=== PATIENT | female | born 1935 | race Caucasian/White ===

== ENCOUNTER → 2018-03-07 | Outpatient (REF) ==
[2018-03-07 09:34] LABS: ALBUMIN 3.4 gm/dL (3.5-5.0); BILIRUBIN,TOTAL 0.3 mg/dL (0.0-1.0); CALCIUM 8.8 mg/dL (8.4-10.2); CREATININE, serum 0.65 mg/dL (0.52-1.25); POTASSIUM 4.8 mmol/L (3.4-5.0); TOTAL PROTEIN 6.4 gm/dL (6.4-8.2)
== END ==
LOC: ZLAB.STJ 09:19
DX: Z01.89 Encounter for other specified special examinations (principal)

== ENCOUNTER → 2018-05-12 | Outpatient (CLI) | payer BC ==
[2018-05-12 15:48] LABS: CALCIUM 8.6 mg/dL (8.4-10.2); CREATININE, serum 0.7 mg/dL (0.52-1.25); POTASSIUM 4.3 mmol/L (3.4-5.0)
[2018-05-12 16:19] LABS: THYROID STIMULATING HORMONE 1.21 uIU/mL (0.465-4.680)
== END ==
LOC: ZCOL.LAB 15:07 → ZLAB.STJ 15:07
PROVIDERS: Nurse Practitioner
DX: R73.09 Other abnormal glucose (principal); R94.6 Abnormal results of thyroid function studies; R79.89 Other specified abnormal findings of blood chemistry

== ENCOUNTER → 2018-05-31 | Outpatient (CLI) | payer BC | LOC: ZLAB.STJ 10:31 | DX: R94.6 Abnormal results of thyroid function studies (principal) ==

== ENCOUNTER → 2018-07-10 | Outpatient (CLI) | payer MEDICARE, BC ==
[2018-07-10 15:20] LABS: COLLECTION METHOD CLEAN CATCH
[2018-07-10 15:46] LABS: PH 8 (5-8); SQUAMOUS EPITHELIAL None Seen /hpf; URINE APPEARANCE Clear; URINE BACTERIA Rare /hpf; URINE BILIRUBIN Negative (NEGATIVE); URINE BLOOD 3+ (NEGATIVE); URINE COLOR Red; URINE GLUCOSE Negative (NEGATIVE); URINE KETONE Negative (NEGATIVE); URINE LEUKOCYTE ESTERASE Negative (NEGATIVE); URINE NITRATE Negative (NEGATIVE); URINE PROTEIN(semi-quant) 2+ (NEGATIVE); URINE RBC >50 /hpf; URINE UROBILINOGEN Negative (NEGATIVE)
== END ==
LOC: ZLAB.STJ 14:26
PROVIDERS: Internal Medicine
DX: R31.9 Hematuria, unspecified (principal)

== ENCOUNTER → 2018-07-24 | Outpatient (CLI) | payer MEDICARE, BC | LOC: ZLAB.STJ 10:09 | DX: R73.09 Other abnormal glucose (principal); R94.6 Abnormal results of thyroid function studies ==

== ENCOUNTER 2018-08-24 11:37 | Emergency (ER) | payer MEDICARE, BC ==
[~2018-08-24] VITALS: Ht 154.9 cm; Wt 73.6 kg
[2018-08-24 11:50] VITALS: TEMP 98.6
[2018-08-24 13:14] LABS: BASO % 0.3 % (0.0-2.0); EOS # 0.1 (0.0-0.7); EOS % 1.4 % (0-4.0); GRAN # 4.9 (1.4-6.5); GRAN % 69.2 % (42.2-75.2); HEMATOCRIT 37.5 % (37.0-47.0); HEMOGLOBIN 11.8 g/dl (12.5-16.0); LYMPH # 1.2 (1.2-3.4); LYMPH % 17.1 % (20.0-51.0); MEAN CELL VOLUME 90 fl (80.0-100.0); MEAN CORPUSCULAR HEMOGLOBIN 28 pg (27.0-31.0); MEAN CORPUSCULAR HGB CONC 32 g/dl (33.0-37.0); MEAN PLATELET VOLUME 13.6 fl (7.4-10.4); MONO # 0.9 (0.1-0.6); MONO % 11.9 % (1.7-9.3); PLATELET COUNT 163 K/mm3 (130-400); RED BLOOD COUNT 4.19 M/mm3 (4.10-5.30)
[2018-08-24 13:31] LABS: COLLECTION METHOD CLEAN CATCH
[2018-08-24 13:32] LABS: ALBUMIN 4.1 gm/dL (3.5-5.0); BILIRUBIN,TOTAL 0.5 mg/dL (0.0-1.0); CALCIUM 9.2 mg/dL (8.4-10.2); CREATININE, serum 0.76 mg/dL (0.52-1.25); POTASSIUM 4.1 mmol/L (3.4-5.0); TOTAL PROTEIN 7.1 gm/dL (6.4-8.2)
[2018-08-24 13:37] LABS: PH 6 (5-8); SQUAMOUS EPITHELIAL 0-2 /hpf; URINE APPEARANCE Clear; URINE BACTERIA None Seen /hpf; URINE BILIRUBIN Negative (NEGATIVE); URINE BLOOD Negative (NEGATIVE); URINE COLOR Yellow; URINE GLUCOSE Negative (NEGATIVE); URINE KETONE Trace (NEGATIVE); URINE LEUKOCYTE ESTERASE Negative (NEGATIVE); URINE NITRATE Negative (NEGATIVE); URINE PROTEIN(semi-quant) Negative (NEGATIVE); URINE RBC 0-2 /hpf; URINE UROBILINOGEN Negative (NEGATIVE); URINE WBC 0-2 /hpf
[2018-08-24 14:02] LABS: TSH w REFLEX 1.58 uIU/mL (0.465-4.680)
[2018-08-24 14:45] VITALS: BP 111/64; PULSE 72
== END 2018-08-24 14:45 | disposition home or self-care (01) ==
LOC: COL.ER 11:37
PROVIDERS: Emergency Medicine
DX: M25.512 Pain in left shoulder (principal); H92.02 Otalgia, left ear; R53.81 Other malaise; F41.9 Anxiety disorder, unspecified; J44.9 Chronic obstructive pulmonary disease, unspecified; F90.9 Attention-deficit hyperactivity disorder, unspecified type

== ENCOUNTER 2018-08-29 09:34 | Emergency (ER) | payer MEDICARE ==
[~2018-08-29] VITALS: Ht 154.9 cm; Wt 73.6 kg
[2018-08-29 09:39] VITALS: TEMP 98
[2018-08-29] MEDS ORDERED: GLUCOPHAGE500 MG/TAB PO (10:00)
[2018-08-29] MEDS ORDERED: NAMENDA5 MG PO (10:05)
[2018-08-29] MEDS ORDERED: MILK OF MA400 MG/52 PO (10:06)
[2018-08-29] MEDS ORDERED: KLONOPIN 0.5MG0.5 MG PO (10:07)
[2018-08-29] MEDS ORDERED: PHILLIPS'311 MG PO (10:07)
[2018-08-29] MEDS ORDERED: NORCO 325 MG-51 TAB PO (10:08)
[2018-08-29] MEDS ORDERED: TYLENOL 325MG325 MG PO (10:09)
[2018-08-29] MEDS ORDERED: XARELTO20 MG PO (10:11)
[2018-08-29] MEDS ORDERED: DESYREL 100MG100 MG PO (10:11)
[2018-08-29] MEDS ORDERED: IPRATROPIUM BROM3 M1 IH (10:16)
[2018-08-29] MEDS ORDERED: BROVANA15 MCG/2 M IH (10:26)
[2018-08-29] MEDS ORDERED: CARDIZEM 30MG T30 MG PO (10:27)
[2018-08-29] MEDS ORDERED: PULMICORT0.5 MG/2 M IH (10:28)
[2018-08-29] MEDS ORDERED: SYNTHROID0.05 MG/TA PO (10:28)
[2018-08-29] MEDS ORDERED: XANAX .25M0.25 MG/TA PO (10:29)
[2018-08-29] MEDS ORDERED: LYRICA 50MG CAP50 MG PO (10:29)
[2018-08-29] MEDS ORDERED: ZOLOFT 100MG100 MG PO (10:30)
[2018-08-29] MEDS ORDERED: ABILIFY5 MG PO (10:30)
[2018-08-29] MEDS ORDERED: IBU600 MG PO (10:31)
[2018-08-29] MEDS ORDERED: MIRALAX PA17 GM/Dose PO (10:31)
[2018-08-29] MEDS ORDERED: ARICEPT10 MG PO (10:32)
[2018-08-29] MEDS ORDERED: PEPCID 20MG TAB20 MG PO (10:33)
[2018-08-29] MEDS ORDERED: MUCINEX 60600 MG/TA1 PO (10:34)
[2018-08-29] MEDS ORDERED: SALINE 45 ML45 ML NS (10:35)
[2018-08-29 11:48] VITALS: BP 120/63; PULSE 96
== END 2018-08-29 12:18 | disposition home or self-care (01) ==
LOC: COL.ER 09:34
DX: R04.0 Epistaxis (principal); I48.91 Unspecified atrial fibrillation; Z79.82 Long term (current) use of aspirin

== ENCOUNTER 2018-10-07 21:07 | Emergency (ER) | payer MEDICARE ==
[~2018-10-07] VITALS: Ht 154.9 cm; Wt 75.9 kg
[2018-10-07 21:07] VITALS: TEMP 97.6
[~2018-10-07 21:07] MED LIST: ABILIFY5 MG PO; ARICEPT10 MG PO; BROVANA15 MCG/2 M IH; CARDIZEM 30MG T30 MG PO; DESYREL 100MG100 MG PO; GLUCOPHAGE500 MG/TAB PO; IBU600 MG PO; IPRATROPIUM BROM3 M1 IH; KLONOPIN 0.5MG0.5 MG PO; LYRICA 50MG CAP50 MG PO; MILK OF MA400 MG/52 PO; MIRALAX PA17 GM/Dose PO; MUCINEX 60600 MG/TA1 PO; NAMENDA5 MG PO; NORCO 325 MG-51 TAB PO; PEPCID 20MG TAB20 MG PO; PHILLIPS'311 MG PO; PULMICORT0.5 MG/2 M IH; SALINE 45 ML45 ML NS; SYNTHROID0.05 MG/TA PO; TYLENOL 325MG325 MG PO; XANAX .25M0.25 MG/TA PO; XARELTO20 MG PO; ZOLOFT 100MG100 MG PO
[2018-10-07] MEDS ORDERED: PROBIOTIC FORMU1 CAP PO (21:16)
[2018-10-07] MEDS ORDERED: TYLENOL 325MG325 MG PO (21:24)
[2018-10-07] MEDS ORDERED: XARELTO20 MG PO (21:25)
[2018-10-07] MEDS ORDERED: IPRATROPIUM BROM3 M1 IH (21:26)
[2018-10-07] MEDS ORDERED: PULMICORT0.5 MG/2 M IH (21:27)
[2018-10-07] MEDS ORDERED: SYNTHROID0.05 MG/TA PO (21:28)
[2018-10-07] MEDS ORDERED: MUCINEX 60600 MG/TA1 (21:32)
[2018-10-07 21:47] LABS: BASO % 0.4 % (0.0-2.0); EOS # 0.4 (0.0-0.7); EOS % 5.1 % (0-4.0); GRAN # 4.9 (1.4-6.5); GRAN % 61.5 % (42.2-75.2); HEMOGLOBIN 10.5 g/dl (12.5-16.0); LYMPH # 1.7 (1.2-3.4); LYMPH % 20.9 % (20.0-51.0); MEAN CELL VOLUME 89 fl (80.0-100.0); MEAN CORPUSCULAR HEMOGLOBIN 27 pg (27.0-31.0); MEAN CORPUSCULAR HGB CONC 30 g/dl (33.0-37.0); MONO % 11.9 % (1.7-9.3); PLATELET COUNT 158 K/mm3 (130-400); RED BLOOD COUNT 3.89 M/mm3 (4.10-5.30)
[2018-10-07 21:48] LABS: HEMATOCRIT 34.5 % (37.0-47.0)
[2018-10-07 21:56] LABS: INR 1.4 (0.8-3.0); PROTHROMBIN TIME 16.3 SECONDS (9.7-12.8)
[2018-10-07 21:59] LABS: PARTIAL THROMBOPLASTIN TIME 60.1 SECONDS (26.0-37.0)
[2018-10-07 22:09] LABS: ALANINE AMINOTRANSFERASE 23 U/L (9-52); ALBUMIN 3.9 gm/dL (3.5-5.0); ALKALINE PHOSPHATASE 71 U/L (50-136); ANION GAP 7 mmol/L (7-16); AST,SGOT 25 U/L (15-37); BILIRUBIN,TOTAL 0.2 mg/dL (0.0-1.0); BLOOD UREA NITROGEN 14 mg/dL (7-17); CALCIUM 8.7 mg/dL (8.4-10.2); CARBON DIOXIDE 31 mmol/L (22-30); CHLORIDE 103 mmol/L (98-107); CREATININE, serum 0.86 mg/dL (0.52-1.25); GLUCOSE 90 mg/dL (74-106); SODIUM 141 mmol/L (137-145); TOTAL PROTEIN 6.9 gm/dL (6.4-8.2)
[2018-10-07 22:27] LABS: TROPONIN-I < 0.012 ng/mL (0.000-0.035)
[2018-10-07 22:40] VITALS: BP 119/56; PULSE 79
== END 2018-10-07 22:43 | disposition home or self-care (01) ==
LOC: COL.ER 21:07
PROVIDERS: Family Medicine
DX: R07.89 Other chest pain (principal); J44.9 Chronic obstructive pulmonary disease, unspecified

== ENCOUNTER → 2018-12-15 | Outpatient (CLI) | payer MEDICARE ==
[~2018-12-15] MED LIST changes: +MUCINEX 60600 MG/TA1; +PROBIOTIC FORMU1 CAP PO
== END ==
LOC: BHSO 09:38
DX: F31.81 Bipolar II disorder (principal)

== ENCOUNTER → 2019-01-08 | Outpatient (CLI) | payer MEDICARE ==
[2019-01-08 14:13] LABS: ALBUMIN 3.9 gm/dL (3.5-5.0); BILIRUBIN,TOTAL 0.4 mg/dL (0.0-1.0); CALCIUM 9.1 mg/dL (8.4-10.2); CHOLESTEROL RISK RATIO 3.9; CREATININE, serum 0.78 (0.52-1.25); POTASSIUM 4.9 mmol/L (3.4-5.0); TOTAL PROTEIN 6.8 gm/dL (6.4-8.2)
[2019-01-08 14:41] LABS: THYROID STIMULATING HORMONE 1.08 uIU/mL (0.465-4.680)
== END ==
LOC: ZLAB.STJ 11:50
PROVIDERS: Internal Medicine
DX: E11.40 Type 2 diabetes mellitus with diabetic neuropathy, unspecified (principal)

== ENCOUNTER → 2019-01-09 | Outpatient (CLI) | payer MEDICARE ==
--- NOTE | 2019-01-09 07:29 | NUR ---
Patient referred to us for Exercise oximetry by Dr. Lao. Pt @ rest on RA arrival SPO2 93%, HR 87, RR 20. Patient was able to walk aprox. 100 ft with walker. Pt's SPO2 at that time increased to 95%, HR 98, RR 24. Patient was unable to walk further explained she has neuropothy and cannot be more active than that walk.
== END ==
LOC: COL.PUL 07:00
DX: R06.02 Shortness of breath (principal)

== ENCOUNTER → 2019-01-12 | Outpatient (CLI) | payer MEDICARE | LOC: BHSO 14:01 | DX: F31.81 Bipolar II disorder (principal) | CPT/HCPCS: G0463 ==

== ENCOUNTER 2019-01-21 11:20 | Emergency (ER) | payer MEDICARE ==
[~2019-01-21] VITALS: Ht 154.9 cm; Wt 73.6 kg
[~2019-01-21 11:20] MED LIST changes: +ABILIFY 10MG TA10 MG PO; -ABILIFY5 MG PO
[2019-01-21 11:28] VITALS: BP 125/65; TEMP 98.7
[2019-01-21 12:22] LABS: BASO % 0.4 % (0.0-2.0); EOS # 0.1 (0.0-0.7); EOS % 1.6 % (0-4.0); GRAN # 5.9 (1.4-6.5); GRAN % 74.3 % (42.2-75.2); HEMATOCRIT 39.4 % (37.0-47.0); HEMOGLOBIN 11.7 g/dl (12.5-16.0); LYMPH % 12.6 % (20.0-51.0); MEAN CELL VOLUME 89 fl (80.0-100.0); MEAN CORPUSCULAR HEMOGLOBIN 26 pg (27.0-31.0); MEAN CORPUSCULAR HGB CONC 30 g/dl (33.0-37.0); MONO # 0.8 (0.1-0.6); MONO % 10.6 % (1.7-9.3); PLATELET COUNT 143 K/mm3 (130-400); RED BLOOD COUNT 4.43 M/mm3 (4.10-5.30); REDCELL DISTRIBUTION WIDTH-CV 17.4 % (11.5-14.5)
[2019-01-21 12:30] LABS: ALANINE AMINOTRANSFERASE 11 U/L (9-52); ALKALINE PHOSPHATASE 73 U/L (50-136); ANION GAP 9 mmol/L (7-16); AST,SGOT 30 U/L (15-37); BILIRUBIN,TOTAL 0.4 mg/dL (0.0-1.0); BLOOD UREA NITROGEN 18 mg/dL (7-17); CALCIUM 9.1 mg/dL (8.4-10.2); CARBON DIOXIDE 30 mmol/L (22-30); CHLORIDE 104 mmol/L (98-107); CREATININE, serum 0.83 (0.52-1.25); GLUCOSE 91 mg/dL (74-106); POTASSIUM 4.5 mmol/L (3.4-5.0); SODIUM 143 mmol/L (137-145); TOTAL PROTEIN 7.4 gm/dL (6.4-8.2)
[2019-01-21 12:35] LABS: ARTERIAL BLD GAS O2 SATURATION 91.4 % (92-100); ARTERIAL BLD GAS TCO2 CT 27.8; ARTERIAL BLOOD GAS BASE EXCESS 0.7 (-2-2); ARTERIAL BLOOD GAS HCO3 26.3 meq/L (22-26); ARTERIAL BLOOD GAS PCO2 46.4 mmHg (35-45); ARTERIAL BLOOD GAS PO2 64.5 mmHg (80-100); ARTERIAL BLOOD GAS pH 7.37 (7.35-7.45)
[2019-01-21 12:42] LABS: TROPONIN-I < 0.012 ng/mL (0.000-0.035)
[2019-01-21] MEDS ORDERED: PREDNISONE20 MG PO (14:07)
[2019-01-21] MEDS ORDERED: OMNICEF 300MG300 MG PO (14:07)
[2019-01-21 14:20] VITALS: PULSE 83
[2019-01-21 14:24] LABS: COLLECTION METHOD CLEAN CATCH
[2019-01-21 14:37] LABS: MUCOUS Present /lpf; PH 6 (5-8); SQUAMOUS EPITHELIAL 0-2 /hpf; URINE APPEARANCE Clear; URINE BACTERIA None Seen /hpf; URINE BILIRUBIN Negative (NEGATIVE); URINE BLOOD Negative (NEGATIVE); URINE COLOR Yellow; URINE GLUCOSE Negative (NEGATIVE); URINE KETONE Negative (NEGATIVE); URINE LEUKOCYTE ESTERASE Negative (NEGATIVE); URINE NITRATE Negative (NEGATIVE); URINE PROTEIN(semi-quant) Negative (NEGATIVE); URINE RBC 0-2 /hpf; URINE UROBILINOGEN Negative (NEGATIVE)
[2019-01-21] MEDS ORDERED: ALBUTEROL0.83 MG/ML IH (14:53)
[2019-01-21] MEDS ORDERED: PERFOROMIS20 MCG/2 M IH (14:53)
[2019-01-21] MEDS ORDERED: PROAIR HFA0.09 MG/AC IH (14:54)
== END 2019-01-21 14:30 | disposition home or self-care (01) ==
LOC: COL.ER 11:20
PROVIDERS: Family Medicine
DX: J44.1 Chronic obstructive pulmonary disease with (acute) exacerbation (principal); J20.9 Acute bronchitis, unspecified; M79.7 Fibromyalgia; I10 Essential (primary) hypertension; E11.9 Type 2 diabetes mellitus without complications; I48.91 Unspecified atrial fibrillation; Z79.84 Long term (current) use of oral hypoglycemic drugs; Z79.01 Long term (current) use of anticoagulants
CPT/HCPCS: A4216; J0696; J2930; J7030

== ENCOUNTER → 2019-01-24 | Outpatient (CLI) | payer MEDICARE ==
[~2019-01-24] MED LIST changes: +ALBUTEROL0.83 MG/ML IH; +OMNICEF 300MG300 MG PO; +PERFOROMIS20 MCG/2 M IH; +PREDNISONE20 MG PO; +PROAIR HFA0.09 MG/AC IH
== END ==
LOC: ZLAB.STJ 10:40
DX: E11.40 Type 2 diabetes mellitus with diabetic neuropathy, unspecified (principal); E03.9 Hypothyroidism, unspecified

== ENCOUNTER → 2019-01-26 | Outpatient (CLI) | payer MEDICARE | LOC: COL.PUL 11:03 | DX: J44.9 Chronic obstructive pulmonary disease, unspecified (principal); I08.1 Rheumatic disorders of both mitral and tricuspid valves ==

== ENCOUNTER 2019-02-18 17:04 | Emergency (ER) | payer MEDICARE ==
[~2019-02-18] VITALS: Ht 154.9 cm; Wt 72.7 kg
[2019-02-18 17:27] VITALS: TEMP 97.1
[2019-02-18 18:34] LABS: ALANINE AMINOTRANSFERASE 21 U/L (9-52); ALBUMIN 3.6 gm/dL (3.5-5.0); ALKALINE PHOSPHATASE 66 U/L (50-136); ANION GAP 7 mmol/L (7-16); AST,SGOT 31 U/L (15-37); BILIRUBIN,TOTAL 0.3 mg/dL (0.0-1.0); BLOOD UREA NITROGEN 13 mg/dL (7-17); C-REACTIVE PROTEIN 2.5 mg/dL (0.0-0.9); CALCIUM 8.5 mg/dL (8.4-10.2); CARBON DIOXIDE 30 mmol/L (22-30); CHLORIDE 104 mmol/L (98-107); GLUCOSE 84 mg/dL (74-106); LIPASE 168 U/L (23-300); POTASSIUM 4.3 mmol/L (3.4-5.0); SODIUM 141 mmol/L (137-145); TOTAL PROTEIN 6.7 gm/dL (6.4-8.2)
[2019-02-18 18:39] LABS: BASO % 0.3 % (0.0-2.0); EOS # 0.1 (0.0-0.7); EOS % 1.9 % (0-4.0); GRAN # 5.2 (1.4-6.5); GRAN % 73.9 % (42.2-75.2); HEMATOCRIT 37.7 % (37.0-47.0); HEMOGLOBIN 11.2 g/dl (12.5-16.0); LYMPH # 0.9 (1.2-3.4); LYMPH % 13.2 % (20.0-51.0); MEAN CELL VOLUME 91 fl (80.0-100.0); MEAN CORPUSCULAR HEMOGLOBIN 27 pg (27.0-31.0); MEAN CORPUSCULAR HGB CONC 30 g/dl (33.0-37.0); MEAN PLATELET VOLUME 13.8 fl (7.4-10.4); MONO # 0.7 (0.1-0.6); MONO % 10.3 % (1.7-9.3); PLATELET COUNT 141 K/mm3 (130-400); RED BLOOD COUNT 4.15 M/mm3 (4.10-5.30); REDCELL DISTRIBUTION WIDTH-CV 16.4 % (11.5-14.5)
[2019-02-18 18:47] LABS: TROPONIN-I < 0.012 ng/mL (0.000-0.035)
[2019-02-18] MEDS ORDERED: K-DUR20 MEQ PO (19:39)
[2019-02-18] MEDS ORDERED: LASIX 20MG TABL20 MG PO (19:39)
[2019-02-18] MEDS ORDERED: PREDNISONE20 MG PO (19:39)
[2019-02-18 19:51] VITALS: BP 136/81; PULSE 92
[2019-02-18] MEDS ORDERED: MILK OF MA400 MG/52 (20:15)
[2019-02-18] MEDS ORDERED: NAMENDA5 MG PO (20:15)
[2019-02-18] MEDS ORDERED: GLUCOPHAGE500 MG/TAB PO (20:15)
[2019-02-18] MEDS ORDERED: KLONOPIN WAFER0.5 MG PO (20:16)
[2019-02-18] MEDS ORDERED: PROBIOTICA100 Milli1 PO (20:16)
[2019-02-18] MEDS ORDERED: CARDIZEM 30MG T30 MG PO (20:17)
[2019-02-18] MEDS ORDERED: XARELTO20 MG PO (20:17)
[2019-02-18] MEDS ORDERED: ATROVENT I0.2 MG/1 M IH (20:17)
[2019-02-18] MEDS ORDERED: PULMICORT0.5 MG/2 M IH (20:18)
[2019-02-18] MEDS ORDERED: ZOLOFT 100MG100 MG PO (20:18)
[2019-02-18] MEDS ORDERED: LYRICA 50MG CAP50 MG PO (20:18)
[2019-02-18] MEDS ORDERED: MIRALAX PA17 GM/Dose PO (20:19)
[2019-02-18] MEDS ORDERED: ARICEPT10 MG PO (20:20)
[2019-02-18] MEDS ORDERED: MUCINEX 60600 MG/TA1 PO (20:20)
[2019-02-18] MEDS ORDERED: PERFOROMIS20 MCG/2 M IH (20:21)
[2019-02-18] MEDS ORDERED: PEPCID 20MG TAB20 MG PO (20:21)
[2019-02-18] MEDS ORDERED: NIRAVAM0.25 MG PO (20:22)
[2019-02-18] MEDS ORDERED: ABILIFY 10MG TA10 MG PO (20:22)
[2019-02-18] MEDS ORDERED: DESYREL 100MG100 MG PO (20:22)
[2019-02-18] MEDS ORDERED: SYNTHROID 0.0.025 MG PO (20:23)
== END 2019-02-18 19:51 | disposition home or self-care (01) ==
LOC: COL.ER 17:04
PROVIDERS: Emergency Medicine
DX: J44.1 Chronic obstructive pulmonary disease with (acute) exacerbation (principal); I50.1 Left ventricular failure, unspecified; F03.90 Unspecified dementia, unspecified severity, without behavioral disturbance, psychotic disturbance, mood disturbance, and anxiety; Z79.84 Long term (current) use of oral hypoglycemic drugs
CPT/HCPCS: J7512

== ENCOUNTER → 2019-02-28 | Outpatient (REF) ==
[~2019-02-28] MED LIST changes: +ATROVENT I0.2 MG/1 M IH; +K-DUR20 MEQ PO; +KLONOPIN WAFER0.5 MG PO; +LASIX 20MG TABL20 MG PO; +MILK OF MA400 MG/52; +NIRAVAM0.25 MG PO; +PROBIOTICA100 Milli1 PO; +SYNTHROID 0.0.025 MG PO
[2019-02-28 10:48] LABS: CALCIUM 8.7 mg/dL (8.4-10.2); CREATININE, serum 0.95 (0.52-1.25); POTASSIUM 5.2 mmol/L (3.4-5.0)
== END ==
LOC: ZLAB.STJ 10:33
PROVIDERS: Nurse Practitioner
DX: Z01.89 Encounter for other specified special examinations (principal)

== ENCOUNTER → 2019-03-09 | Outpatient (CLI) | payer MEDICARE | LOC: ZLAB.STJ 17:00 | DX: R94.6 Abnormal results of thyroid function studies (principal) ==

== ENCOUNTER → 2019-03-14 | Outpatient (CLI) | payer MEDICARE | LOC: ZLAB.STJ 11:57 | DX: E87.5 Hyperkalemia (principal) ==

== ENCOUNTER → 2019-04-18 | Outpatient (CLI) | payer MEDICARE | LOC: BHSO 13:45 | DX: F31.81 Bipolar II disorder (principal) | CPT/HCPCS: G0463 ==

== ENCOUNTER → 2019-04-19 | Outpatient (CLI) | payer MEDICARE ==
[2019-04-19 11:53] LABS: BILIRUBIN,TOTAL 0.6 mg/dL (0.0-1.0); CALCIUM 8.9 mg/dL (8.4-10.2); CHOLESTEROL RISK RATIO 4.4; CREATININE, serum 0.83 (0.52-1.25); POTASSIUM 4.8 mmol/L (3.4-5.0); TOTAL PROTEIN 6.8 gm/dL (6.4-8.2)
[2019-04-19 12:23] LABS: THYROID STIMULATING HORMONE 2.02 uIU/mL (0.465-4.680)
== END ==
LOC: ZLAB.STJ 10:45
PROVIDERS: Psychiatry & Neurology Psychiatry
DX: I48.0 Paroxysmal atrial fibrillation (principal); R94.6 Abnormal results of thyroid function studies

== ENCOUNTER → 2019-05-21 | Outpatient (CLI) | payer MEDICARE | LOC: COL.RAD 13:17 | DX: J44.9 Chronic obstructive pulmonary disease, unspecified (principal) ==

== ENCOUNTER → 2019-05-31 | Outpatient (CLI) | payer MEDICARE, MEDICAID | LOC: ZLAB.STJ 11:33 | DX: E11.40 Type 2 diabetes mellitus with diabetic neuropathy, unspecified (principal); E03.9 Hypothyroidism, unspecified ==

== ENCOUNTER → 2019-06-14 | Outpatient (CLI) | payer MEDICARE, MEDICAID | LOC: BHSO 14:01 | DX: F31.81 Bipolar II disorder (principal) | CPT/HCPCS: G0463 ==

== ENCOUNTER → 2019-09-21 | Outpatient (CLI) | payer MEDICARE, MEDICAID | LOC: BHSO 13:55 | DX: F31.81 Bipolar II disorder (principal) | CPT/HCPCS: G0463 ==

== ENCOUNTER → 2019-10-09 | Outpatient (CLI) | payer MEDICARE, MEDICAID ==
[2019-10-09 10:39] LABS: CALCIUM 8.7 mg/dL (8.4-10.2); CREATININE, serum 0.9 (0.52-1.25); POTASSIUM 4.5 mmol/L (3.4-5.0)
== END ==
LOC: ZLAB.STJ 10:27
PROVIDERS: Internal Medicine
DX: E11.40 Type 2 diabetes mellitus with diabetic neuropathy, unspecified (principal); I10 Essential (primary) hypertension

== ENCOUNTER → 2019-10-12 | Outpatient (CLI) | payer MEDICARE, MEDICAID ==
[2019-10-12 10:33] LABS: HEMATOCRIT 41.7 % (37.0-47.0); HEMOGLOBIN 12.5 g/dl (12.5-16.0); MEAN CELL VOLUME 98 fl (80.0-100.0); MEAN CORPUSCULAR HEMOGLOBIN 29 pg (27.0-31.0); MEAN CORPUSCULAR HGB CONC 30 g/dl (33.0-37.0); PLATELET COUNT 136 K/mm3 (130-400); RED BLOOD COUNT 4.27 M/mm3 (4.10-5.30); REDCELL DISTRIBUTION WIDTH-CV 13.8 % (11.5-14.5)
== END ==
LOC: ZLAB.STJ 09:37
PROVIDERS: Internal Medicine
DX: I48.0 Paroxysmal atrial fibrillation (principal)

== ENCOUNTER → 2020-03-13 | Outpatient (CLI) | payer MEDICARE, MEDICAID | LOC: BHSO 14:00 | DX: F31.81 Bipolar II disorder (principal) ==

== ENCOUNTER → 2020-03-26 | Outpatient (CLI) | payer MEDICARE, MEDICAID ==
[2020-03-26 11:12] LABS: ALBUMIN 3.7 gm/dL (3.5-5.0); BILIRUBIN,TOTAL 0.5 mg/dL (0.0-1.0); CALCIUM 8.6 mg/dL (8.4-10.2); CREATININE, serum 0.92 (0.52-1.25); TOTAL PROTEIN 6.7 gm/dL (6.4-8.2)
[2020-03-26 11:42] LABS: THYROID STIMULATING HORMONE 2.63 uIU/mL (0.465-4.680)
== END ==
LOC: ZCOL.LAB 10:42
PROVIDERS: Family Medicine
DX: E03.9 Hypothyroidism, unspecified (principal)

== ENCOUNTER → 2020-09-20 | Outpatient (CLI) | payer MEDICARE, MEDICAID ==
[2020-09-20 08:13] LABS: COLLECTION METHOD CLEAN CATCH
[2020-09-20 08:23] LABS: MUCOUS Present /lpf; PH 6 (5-8); SQUAMOUS EPITHELIAL 0-2 /hpf; URINE APPEARANCE Clear; URINE BACTERIA None Seen /hpf; URINE BILIRUBIN Negative (NEGATIVE); URINE BLOOD Negative (NEGATIVE); URINE COLOR Yellow; URINE GLUCOSE Negative (NEGATIVE); URINE KETONE Negative (NEGATIVE); URINE LEUKOCYTE ESTERASE Negative (NEGATIVE); URINE NITRATE Negative (NEGATIVE); URINE PROTEIN(semi-quant) Negative (NEGATIVE); URINE UROBILINOGEN Negative (NEGATIVE)
== END ==
LOC: ZLAB.STJ 08:09
PROVIDERS: Family Medicine
DX: N39.0 Urinary tract infection, site not specified (principal)

== ENCOUNTER → 2020-10-09 | Outpatient (CLI) | payer MEDICARE, MEDICAID ==
[2020-10-09 12:25] LABS: HEMATOCRIT 41.4 % (37.0-47.0); HEMOGLOBIN 12.5 g/dl (12.5-16.0); MEAN CELL VOLUME 97 fl (80.0-100.0); MEAN CORPUSCULAR HEMOGLOBIN 29 pg (27.0-31.0); MEAN CORPUSCULAR HGB CONC 30 g/dl (33.0-37.0); PLATELET COUNT 120 K/mm3 (130-400); RED BLOOD COUNT 4.28 M/mm3 (4.10-5.30); REDCELL DISTRIBUTION WIDTH-CV 13.5 % (11.5-14.5)
[2020-10-09 12:32] LABS: CHOLESTEROL RISK RATIO 4.7
[2020-10-09 13:01] LABS: TSH w REFLEX 3.22 uIU/mL (0.465-4.680)
== END ==
LOC: ZLAB.STJ 09:45
PROVIDERS: Family Medicine
DX: E11.40 Type 2 diabetes mellitus with diabetic neuropathy, unspecified (principal)

== ENCOUNTER → 2020-10-22 | Outpatient (CLI) | payer MEDICARE, MEDICAID ==
[2020-10-23 10:03] LABS: COLLECTION METHOD CLEAN CATCH
[2020-10-23 10:05] LABS: PH 6 (5-8); URINE APPEARANCE Clear; URINE BILIRUBIN Negative (NEGATIVE); URINE COLOR Yellow; URINE GLUCOSE Negative (NEGATIVE); URINE KETONE Negative (NEGATIVE); URINE PROTEIN(semi-quant) Negative (NEGATIVE); URINE UROBILINOGEN Negative (NEGATIVE)
[2020-10-23 10:06] LABS: SQUAMOUS EPITHELIAL 0-2 /hpf; URINE BLOOD 1+ (NEGATIVE); URINE LEUKOCYTE ESTERASE Trace (NEGATIVE); URINE NITRATE Negative (NEGATIVE)
[2020-10-23 10:07] LABS: URINE BACTERIA None Seen /hpf
== END ==
LOC: ZLAB.STJ 08:35
PROVIDERS: Family Medicine
DX: R31.9 Hematuria, unspecified (principal)

== ENCOUNTER 2021-01-04 12:08 | Emergency (ER) | payer MEDICARE, MEDICAID ==
[~2021-01-04] VITALS: Ht 154.9 cm; Wt 80.0 kg
[2021-01-04 12:13] VITALS: TEMP 98.3
[2021-01-04 14:26] VITALS: BP 124/64; PULSE 62
== END 2021-01-04 14:30 ==
LOC: COL.ER 12:08
DX: S09.90XA Unspecified injury of head, initial encounter (principal); S01.01XA Laceration without foreign body of scalp, initial encounter; M65.88 Other synovitis and tenosynovitis, other site; F31.9 Bipolar disorder, unspecified; J44.9 Chronic obstructive pulmonary disease, unspecified; I48.91 Unspecified atrial fibrillation; E11.40 Type 2 diabetes mellitus with diabetic neuropathy, unspecified; Z79.84 Long term (current) use of oral hypoglycemic drugs; Z79.01 Long term (current) use of anticoagulants; Z79.51 Long term (current) use of inhaled steroids; W01.198A Fall on same level from slipping, tripping and stumbling with subsequent striking against other object, initial encounter

== ENCOUNTER → 2021-04-03 | Outpatient (CLI) | payer MEDICARE, MEDICAID | LOC: ZLAB.STJ 14:41 | DX: E11.40 Type 2 diabetes mellitus with diabetic neuropathy, unspecified (principal) ==

== ENCOUNTER → 2021-08-30 | Outpatient (CLI) | payer MEDICARE, MEDICAID ==
[2021-08-30 11:06] LABS: COLLECTION METHOD CLEAN CATCH
[2021-08-30 11:23] LABS: MUCOUS Present (NOT PRESENT); PH 5 (5-8); SQUAMOUS EPITHELIAL 0-2 /hpf (0-10); URINE APPEARANCE Hazy (CLEAR/HAZY); URINE BACTERIA Rare /hpf (NONE SEEN); URINE BILIRUBIN Negative (NEGATIVE); URINE BLOOD Negative (NEGATIVE); URINE COLOR Yellow (YELLOW); URINE GLUCOSE Negative (NEGATIVE); URINE KETONE Negative (NEGATIVE); URINE LEUKOCYTE ESTERASE Trace (NEGATIVE); URINE NITRATE Negative (NEGATIVE); URINE PROTEIN(semi-quant) Negative (NEGATIVE); URINE RBC 0-2 /hpf (0-2); URINE UROBILINOGEN Negative (NEGATIVE)
== END ==
LOC: ZLAB.STJ 10:23
PROVIDERS: Family Medicine
DX: N39.0 Urinary tract infection, site not specified (principal)

== ENCOUNTER → 2021-09-01 | Outpatient (CLI) | payer MEDICARE, MEDICAID | LOC: ZLAB.STJ 13:04 | DX: J10.1 Influenza due to other identified influenza virus with other respiratory manifestations (principal) ==

== ENCOUNTER → 2021-10-02 | Outpatient (CLI) | payer MEDICARE, MEDICAID ==
[2021-10-02 13:56] LABS: HEMATOCRIT 35.6 % (37.0-47.0); HEMOGLOBIN 10.6 g/dl (12.5-16.0); MEAN CELL VOLUME 94 fl (80.0-100.0); MEAN CORPUSCULAR HEMOGLOBIN 28 pg (27-31); MEAN CORPUSCULAR HGB CONC 30 g/dl (33.0-37.0); PLATELET COUNT 100 K/mm3 (130-400); RED BLOOD COUNT 3.77 M/mm3 (4.10-5.30); REDCELL DISTRIBUTION WIDTH-CV 14.6 % (11.5-14.5)
[2021-10-02 14:12] LABS: ALBUMIN 3.1 gm/dL (3.4-4.8); BILIRUBIN,TOTAL 0.4 mg/dL (0.2-1.2); CALCIUM 8.3 mg/dL (8.4-10.2); CHOLESTEROL RISK RATIO 3.9; CREATININE, serum 0.83 mg/dL (0.57-1.11); POTASSIUM 4.4 mmol/L (3.5-4.5); TOTAL PROTEIN 6.3 gm/dL (6.2-8.1)
[2021-10-02 14:34] LABS: THYROID STIMULATING HORMONE 2.267 uIU/mL (0.350-4.940)
== END ==
LOC: ZLAB.STJ 13:23
PROVIDERS: Family Medicine
DX: I48.0 Paroxysmal atrial fibrillation (principal); E78.2 Mixed hyperlipidemia; E11.69 Type 2 diabetes mellitus with other specified complication; E03.9 Hypothyroidism, unspecified; E55.9 Vitamin D deficiency, unspecified

== ENCOUNTER → 2021-10-06 | Outpatient (CLI) | payer MEDICARE, MEDICAID | LOC: ZLAB.STJ 16:27 | DX: E55.9 Vitamin D deficiency, unspecified (principal) ==

== ENCOUNTER 2022-04-18 07:56 | Inpatient (IN) | payer MEDICARE, MEDICAID ==
[~2022-04-18] VITALS: Ht 152.4 cm; Wt 73.6 kg
[~2022-04-18 07:56] MED LIST changes: +PROBIOTIC BLEN1 EACH PO; -PROBIOTICA100 Milli1 PO
[2022-04-18 09:43] LABS: BASO % 0.1 % (0.0-2.0); EOS % 0.3 % (0.0-4.0); GRAN # 6.7 K/mm3 (1.4-6.5); GRAN % 88.8 % (42.2-75.2); HEMATOCRIT 38.9 % (37.0-47.0); HEMOGLOBIN 11.7 g/dl (12.5-16.0); LYMPH # 0.4 K/mm3 (1.2-3.4); LYMPH % 5.3 % (20.0-51.0); MEAN CELL VOLUME 96 fl (80.0-100.0); MEAN CORPUSCULAR HEMOGLOBIN 29 pg (27-31); MEAN CORPUSCULAR HGB CONC 30 g/dl (33.0-37.0); MEAN PLATELET VOLUME 13.5 fl (7.4-10.4); MONO # 0.4 K/mm3 (0.1-0.6); MONO % 5.2 % (1.7-9.3); PLATELET COUNT 103 K/mm3 (130-400); RED BLOOD COUNT 4.05 M/mm3 (4.10-5.30); REDCELL DISTRIBUTION WIDTH-CV 13.3 % (11.5-14.5)
[2022-04-18 09:52] LABS: CALCIUM 8.6 mg/dL (8.4-10.2); CREATININE, serum 1.03 mg/dL (0.57-1.11); POTASSIUM 4.4 mmol/L (3.5-4.5)
[2022-04-18 10:00] LABS: TROPONIN-I 0.011 ng/mL (0.00-0.033)
[2022-04-18 11:03] VITALS: BP 134/75; PULSE 96; TEMP 97.9
[2022-04-18] MEDS ORDERED: KLOR-CON SPRIN10 MEQ PO (11:30)
[2022-04-18] MEDS ORDERED: TYLENOL 325MG325 MG PO (11:31)
[2022-04-18] MEDS ORDERED: ZOFRAN 4MG T4 MG/TAB PO (11:32)
[2022-04-18] MEDS ORDERED: ROBITUSSIN DM 105 ML PO (11:35)
[2022-04-18] MEDS ORDERED: SENNA-LAX8.6 MG PO (11:37)
[2022-04-18] MEDS ORDERED: LASIX 20MG TABL20 MG PO (11:37)
[2022-04-18] MEDS ORDERED: ORAJEL MM (11:39)
[2022-04-18] MEDS ORDERED: IBU400 MG PO (11:42)
[2022-04-18] MEDS ORDERED: DITROPAN XL 5MG5 M1 PO (11:43)
[2022-04-18] MEDS ORDERED: BREO ELLIPTA 21 EACH IH (11:43)
[2022-04-18] MEDS ORDERED: COMBIRESP IH (11:44)
[2022-04-18] MEDS ORDERED: MAALOX ADVANCE148 ML PO (11:46)
[2022-04-18] MEDS ORDERED: VITAMIN D31000 IU PO (11:47)
[2022-04-18] MEDS ORDERED: SALINE 45 ML45 ML NS (11:49)
[2022-04-18] MEDS ORDERED: ANTI-DIARRHEAL2 MG PO (11:52)
[2022-04-18] MEDS ORDERED: ANTIVERT 25MG25 MG PO (11:53)
[2022-04-18] MEDS ORDERED: BIOFREEZE 0.2%-1 GE1 TOP (11:54)
[2022-04-18] MEDS ORDERED: NYAMYC100000 U/G TP (11:55)
[2022-04-18 15:11] VITALS: BP 147/70; PULSE 100; TEMP 98.1
--- NOTE | 2022-04-18 19:14 | NUR ---
TX GIVEN VIA MASK, TOLERATED WELL.
[2022-04-18 19:23] VITALS: BP 164/80; PULSE 103; TEMP 98
[2022-04-19 01:17] VITALS: BP 141/76; PULSE 94; TEMP 98
[2022-04-19 05:12] VITALS: BP 153/78; PULSE 88; TEMP 98.4
[2022-04-19 08:00] VITALS: BP 120/65; PULSE 95; TEMP 98
--- NOTE | 2022-04-19 08:00 | NUR ---
Patient had a bad night, states she could not sleep. She continues with cough and 3L 02 NC. Tachycardic. Telemetry in place. Receiving NS 75ML/HR. Assessment completed, meds provided, assisted to the restromm. No other needs at this time. Call light within reach.
[2022-04-19 09:34] LABS: GRAN % 89.8 % (42.2-75.2); HEMOGLOBIN 11.4 g/dl (12.5-16.0); LYMPH # 0.4 K/mm3 (1.2-3.4); LYMPH % 6.4 % (20.0-51.0); MEAN CELL VOLUME 93 fl (80.0-100.0); MEAN CORPUSCULAR HEMOGLOBIN 29 pg (27-31); MEAN CORPUSCULAR HGB CONC 31 g/dl (33.0-37.0); MEAN PLATELET VOLUME 13.7 fl (7.4-10.4); MONO # 0.2 K/mm3 (0.1-0.6); MONO % 3.4 % (1.7-9.3); PLATELET COUNT 110 K/mm3 (130-400); RED BLOOD COUNT 3.94 M/mm3 (4.10-5.30); REDCELL DISTRIBUTION WIDTH-CV 13.2 % (11.5-14.5)
[2022-04-19 09:38] LABS: HEMATOCRIT 36.6 % (37.0-47.0)
[2022-04-19 09:52] LABS: CALCIUM 8.6 mg/dL (8.4-10.2); CREATININE, serum 0.86 mg/dL (0.57-1.11); MAGNESIUM 2.3 mg/dL (1.6-2.6); POTASSIUM 4.5 mmol/L (3.5-4.5)
[2022-04-19 12:00] VITALS: BP 123/68; PULSE 99; TEMP 97.9
[2022-04-19] MEDS ORDERED: IPRATROPIUM BROM3 M1 IH (12:15)
[2022-04-19] MEDS ORDERED: TYLENOL 325MG325 MG PO (12:15)
--- NOTE | 2022-04-19 14:20 | NUR ---
Canning Machine Operator met with patient to discuss discharge planning. Patient lives at [facility] and sees Dr. Addison for primary care. Patient has home oxygen and uses a walker for ambulation. Patient reports her DPOA-HC is her son in law, Mando however SW could not locate copy in EMR. Patient plans to return to [facility] at time of discharge. MITZY contacted Farshad at [facility] and faxed clinical updates. MITZY also requested copy of DPOA-HC. SW attempted to contact Mando, however number listed was not in service. Discharge Plan: [facility]
--- NOTE | 2022-04-19 14:24 | NUR ---
Farshad advised they do not have a copy of DP-.
[2022-04-19 16:05] VITALS: BP 148/66; PULSE 92; TEMP 97.8
--- NOTE | 2022-04-19 19:23 | NUR ---
Patient has had an active day, she constantly went to the restroom assisted. Continues with cough and feels SOB. O2 sat over 95% with 3L NC. Report given to night nurse.
[2022-04-19 20:30] VITALS: BP 164/78; PULSE 93; TEMP 98.2
[2022-04-20 00:10] VITALS: BP 123/67; PULSE 61; TEMP 98
--- NOTE | 2022-04-20 01:45 | NUR ---
Respiratory therapy in with patient giving treatment-- respiratory therapist states that when she took off o2 to put on treatment the patients sats dropped to 81%, pt coughing very hard- lung sounds with crackles/wheezes, Kaleigh STEPHENS called- will stop IV fluids at this time, also CXR ordered, o2 up to 4L/nc with o2 mask, sats 95% now
--- NOTE | 2022-04-20 03:35 | NUR ---
Kaleigh STEPHENS did see chest x-ray results- no new orders at this time, she is resting quietly at this time, o2 sats 94-95% on 3L/nc- couldnt tolerate the o2 mask,,
[2022-04-20 04:43] VITALS: BP 143/71; PULSE 97; TEMP 97.6
--- NOTE | 2022-04-20 05:20 | NUR ---
Has been resting for the past couple hours now-- o2 sats 95% on the 3L/nc.
[2022-04-20 08:00] VITALS: BP 141/69; PULSE 101; TEMP 98
[2022-04-20 11:11] VITALS: BP 136/65; PULSE 98; TEMP 97.9
--- NOTE | 2022-04-20 12:55 | NUR ---
Brick Catcher collaborated with KAT Green who advised patient was tearful today during rounds when it was brought up that she would return to [facility] when ready for discharge. Patient stated she was afraid to return and referenced her roommate. MITZY contacted patient's son in law, Mando (ph#[phone]) who advised he visited patient yesterday. Mando advised he feels patient has been receiving great care at [facility], however has had some issues with her roommate regarding the air conditioner. MITZY advised Mando that she would update Farshad at [facility] about this conflict. Mando is in agreement with patient returning to [facility] at time of discharge. MITZY contacted Farshad and provided the above update. MITZY also faxed clinical updates, then faxed clinical information to [facility] to request auth for a SNF stay.
[2022-04-20 16:29] VITALS: BP 157/72; PULSE 101; TEMP 97.9
[2022-04-20 19:29] VITALS: BP 157/82; PULSE 101; TEMP 98
--- NOTE | 2022-04-20 20:30 | NUR ---
Initial shift assessment done-o2 at 3L/nc sats 94-95%, Tele on, denies pain at this time- INT to right wrist, continues with cough- was given cough medicine around 1730 tonight. Up to BSC voiding clear yellow urine, and had some soft stool
--- NOTE | 2022-04-20 21:22 | NUR ---
TX GIVEN VIA MASK, TOLERATED WELL. O2 NC DECREASED TO 2L AND TOLERATING WELL.
[2022-04-21 00:52] VITALS: BP 145/65; PULSE 89; TEMP 97.6
[2022-04-21 05:21] VITALS: BP 132/71; PULSE 96; TEMP 97.9
--- NOTE | 2022-04-21 06:06 | NUR ---
Overall a quiet night- VSS , o2 sats 96% on 2L/nc, Did get more sleep last night- cough medicaine given around 0100 this morning- coughing is less frequent today.
[2022-04-21 06:29] LABS: HEMOGLOBIN 11.3 g/dl (12.5-16.0); MEAN CELL VOLUME 93 fl (80.0-100.0); MEAN CORPUSCULAR HEMOGLOBIN 29 pg (27-31); MEAN CORPUSCULAR HGB CONC 31 g/dl (33.0-37.0); MEAN PLATELET VOLUME 13.8 fl (7.4-10.4); PLATELET COUNT 131 K/mm3 (130-400); RED BLOOD COUNT 3.88 M/mm3 (4.10-5.30); REDCELL DISTRIBUTION WIDTH-CV 13.5 % (11.5-14.5)
[2022-04-21 06:40] LABS: CALCIUM 8.6 mg/dL (8.4-10.2); CREATININE, serum 0.84 mg/dL (0.57-1.11); POTASSIUM 4.4 mmol/L (3.5-4.5)
[2022-04-21 07:40] VITALS: BP 160/86; PULSE 92; TEMP 97.5
[2022-04-21 07:47] LABS: LYMPHOCYTE 2 % (20.0-51.0); NEUTROPHILS 98 % (42.0-75.2)
[2022-04-21 07:48] LABS: HYPOCHROMIA 2+; PLATELET ESTIMATE NORMAL (NORMAL)
[2022-04-21] MEDS ORDERED: XARELTO15 MG PO (11:13)
[2022-04-21 11:58] VITALS: BP 158/86; PULSE 99; TEMP 97.9
[2022-04-21] MEDS ORDERED: MONODOX100 PO (13:10)
[2022-04-21] MEDS ORDERED: PREDNISONE20 MG PO (13:25)
[2022-04-21] MEDS ORDERED: LYRICA 50MG CAP50 MG PO (13:46)
[2022-04-21 14:40] LABS: COLLECTION METHOD CLEAN CATCH
[2022-04-21 14:54] LABS: MUCOUS Present (NOT PRESENT); SQUAMOUS EPITHELIAL 0-2 /hpf (0-10); URINE BACTERIA None Seen /hpf (NONE SEEN); URINE RBC 0-2 /hpf (0-2)
[2022-04-21 14:55] LABS: PH 5.5 (5.0-8.5); URINE APPEARANCE Clear (CLEAR/HAZY); URINE COLOR Yellow (YELLOW); URINE GLUCOSE Negative (NEGATIVE); URINE KETONE Negative (NEGATIVE); URINE NITRATE Negative (NEGATIVE); URINE PROTEIN(semi-quant) 1+ (NEGATIVE); URINE UROBILINOGEN 0.2 E.U/dL (0.2-1.0)
[2022-04-21 14:56] LABS: URINE BLOOD 1+ (NEGATIVE)
--- NOTE | 2022-04-21 15:34 | NUR ---
Show Jumping Instructor attended clinical rounds with the team. Patient is very upset and tearful when it is told to her that she will be discharged back to [facility] today. Patient states she is scared and upset. MITZY contacted Farshad to discuss these concerns again. [facility]Y [facility] #[id number] ref#[id number]). Even in a SNF bed, patient would still return to her room with her roommate. Farshad stated they have no other bed available for her at this time. MITZY requested Farshad call patient, which he did. MITZY also requested he involve MITZY Madera at [facility] to assist with conflict resolution. MITZY followed up with patient who advised she was scared to return to her room as her roommate keeps the room too cold, for example 69 degrees, and she is worried about getting sick again. MITZY offered emotional support and advised she has involved staff at [facility] to help resolve this matter. Patient verbalized understanding that she would be discharged today to [facility] and although she is tearful, she is in agreement. MIZTY contacted patient's son in law, Mando to discuss the above concerns. Mando understands patient will have to be discharged back to her current room today, however he advised he will work with MITZY Madera to assist in resolving this matter. MITZY contacted Farshad and transport time was finally set for 1530 after patient's urine screen came back and orders were finalized. MITZY faxed orders and negative covid results. MITZY met with patient again to offer support and provide transport time. Discharge Plan: [facility]
--- NOTE | 2022-04-21 15:49 | NUR ---
PATIENT LEFT WITH [employer] EMPLOYEE VIA WHEELCHAIR, IN STABLE CONDITION, ON 2L NC. ALL BELONGINGS WITH HER.
== END 2022-04-21 15:50 | DRG 193 ==
LOC: COL.ER 07:56 → MEDICAL 10:17
PROVIDERS: Emergency Medicine; Physician Assistant; ADMIT Internal Medicine
DX: J12.2 Parainfluenza virus pneumonia (principal); J96.21 Acute and chronic respiratory failure with hypoxia; J96.11 Chronic respiratory failure with hypoxia; A04.0 Enteropathogenic Escherichia coli infection; J44.9 Chronic obstructive pulmonary disease, unspecified; E11.9 Type 2 diabetes mellitus without complications; Z20.822 Contact with and (suspected) exposure to COVID-19; K21.9 Gastro-esophageal reflux disease without esophagitis; F03.90 Unspecified dementia, unspecified severity, without behavioral disturbance, psychotic disturbance, mood disturbance, and anxiety; E03.9 Hypothyroidism, unspecified; I49.9 Cardiac arrhythmia, unspecified; R35.0 Frequency of micturition; R39.15 Urgency of urination; Z79.890 Hormone replacement therapy; Z90.89 Acquired absence of other organs; Z79.84 Long term (current) use of oral hypoglycemic drugs; Z99.81 Dependence on supplemental oxygen
CPT/HCPCS: A9284; J0696; J2920; J7030; J8540

== ENCOUNTER 2023-05-16 09:56 | Emergency (ER) | payer MEDICARE, MEDICAID ==
[~2023-05-16] VITALS: Ht 154.9 cm; Wt 75.0 kg
[~2023-05-16 09:56] MED LIST changes: +ANTI-DIARRHEAL2 MG PO; +ANTIVERT 25MG25 MG PO; +ASPIRIN 81M81 MG/TA2 PO; +BIOFREEZE 0.2%-1 GE1 TOP; +BREO ELLIPTA 21 EACH IH; +CARAFATE 1GM1 G PO; +COMBIRESP IH; +DITROPAN XL 5MG5 M1 PO; +IBU400 MG PO; +KLOR-CON SPRIN10 MEQ PO; +LIPITOR 40MG TA40 MG PO; +MAALOX ADVANCE148 ML PO; +MONODOX100 PO; +NYAMYC100000 U/G TP; +ORAJEL MM; +PROTONIX 40MG T40 MG PO; +ROBITUSSIN DM 105 ML PO; +SENNA-LAX8.6 MG PO; +VITAMIN D31000 IU PO; +XARELTO15 MG PO; +ZOFRAN 4MG T4 MG/TAB PO
[2023-05-16 10:00] VITALS: TEMP 97.6
[2023-05-16 11:26] LABS: BASO % 0.2 % (0.0-2.0); EOS # 0.1 K/mm3 (0.0-0.7); GRAN # 7.4 K/mm3 (1.4-6.5); HEMATOCRIT 40.2 % (37.0-47.0); LYMPH # 0.7 K/mm3 (1.2-3.4); LYMPH % 7.9 % (20.0-51.0); MEAN CELL VOLUME 98 fl (80.0-100.0); MEAN CORPUSCULAR HEMOGLOBIN 29 pg (27-31); MEAN CORPUSCULAR HGB CONC 30 g/dl (33.0-37.0); MEAN PLATELET VOLUME 14.2 fl (7.4-10.4); MONO # 0.5 K/mm3 (0.1-0.6); MONO % 5.6 % (1.7-9.3); PLATELET COUNT 138 K/mm3 (130-400); REDCELL DISTRIBUTION WIDTH-CV 13.2 % (11.5-14.5)
[2023-05-16 11:38] LABS: CALCIUM 9.1 mg/dL (8.4-10.2); CREATININE, serum 0.99 mg/dL (0.57-1.11); POTASSIUM 4.8 mmol/L (3.5-4.5)
[2023-05-16] MEDS ORDERED: CEPHALEXIN500 M1 PO (12:03)
[2023-05-16 12:19] VITALS: BP 108/77; PULSE 99
== END 2023-05-16 12:30 | disposition home or self-care (01) ==
LOC: COL.ER 09:56
PROVIDERS: Emergency Medicine
DX: R04.0 Epistaxis (principal); Z79.01 Long term (current) use of anticoagulants